=== PATIENT | female | born 1940 | race Caucasian/White ===

== ENCOUNTER 2019-03-23 08:48 | Emergency (ER) | payer OTHER, SELFPAY ==
[2019-03-23 08:55] VITALS: BP 104/62; PULSE 85; RESP 18; TEMP 36.7; O2SAT 100; BMI 27.3
--- NOTE | 2019-03-23 10:18 | ED.LOWEXIN ---
HPI - Extremity Injury (Lower) General Chief Complaint: Extremity Injury, Lower Stated Complaint: Left leg throbing, pain Time Seen by Provider: 03/23/19 08:55 Source: patient Mode of arrival: ambulatory Limitations: no limitations History of Present Illness HPI Narrative: Patient comes emergency department complaining of left pretibial abrasion that she sustained about 2 and half weeks ago. Patient states that she has had ongoing pain in the area of the abrasion, though no fevers, chills, or drainage from the wound. She has not noticed any erythema extending from the wound. She states she felt a ?lump? above the wound, but this seems to resolved. Patient has noted a mild amount of swelling in her ankle on the same side. She states that she was concerned that she may have a blood clot. She states she has been getting up and about quite a bit, and actually more than normal, because she and her recently host did a wedding on their property. 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 She states that she has definitely not been doing a lot of sitting or laying. Patient denies any calf pain. No history of DVT. No family history of DVT. Patient states she is otherwise healthy and has no other complaints at this time. Related Data Allergies Allergy/AdvReac Type Severity Reaction Status Date / Time Sulfa (Sulfonamide Allergy Verified 03/23/19 08:55 Antibiotics) Review of Systems Constitutional Constitutional: Denies chills, Denies fatigue, Denies fever(s), Denies frequent falls, Denies lethargy and Denies weakness Eyes Eyes: Denies change in vision, Denies eye discharge, Denies irritation and Denies loss of vision ENT Ears, Nose, Mouth, and Throat: Denies change in voice, Denies dizziness, Denies neck pain, Denies sore throat and Denies throat swelling Cardiovascular Cardiovascular: Denies chest pain, Denies irregular heart rhythm, Denies lightheadedness, Denies palpitations, Denies dyspnea, Denies dyspnea on exertion and Denies orthopnea Respiratory Respiratory: Denies cough, Denies dyspnea, Denies dyspnea on exertion and Denies wheezing Gastrointestinal Gastrointestinal: Denies abdominal pain, Denies change in bowel habits, Denies diarrhea, Denies nausea and Denies vomiting Genitourinary Genitourinary: Denies hematuria, Denies flank pain, Denies urinary incontinence and Denies urinary urgency Musculoskeletal Musculoskeletal: Denies back pain, Denies muscle weakness, Denies neck pain, Denies numbness and Denies tingling Comments: Ankle swelling Integumentary/Breasts Skin/Breast: Denies pruritus, Denies erythema, Denies rash and Denies wounds Comments: Abrasion Neurologic Neurologic: Denies behavioral changes, Denies confusion, Denies dizziness, Denies frequent falls, Denies loss of vision, Denies numbness, Denies tingling and Denies weakness Psychiatric Psychiatric: Denies anxiety, Denies behavioral changes, Denies confusion, Denies depression, Denies homicidal ideation and Denies suicidal ideation Endocrine Endocrine: Denies fatigue, Denies flushing and Denies palpitations Hematologic/Lymphatic Hematologic/Lymphatic: Denies easy bruising Allergic/Immunologic Allergic/Immunologic: Denies urticaria, Denies throat swelling and Denies wheezing [facility] Medical History Healthy adult (Acute) Surgical History No pertinent past surgical history (Acute) Social History Smoking Status: Never smoker Social History Smoking Status: Never smoker Exam Initial Vital Signs Initial Vital Signs: Vital Signs Temperature 98.0 F 03/23/19 08:55 Pulse Rate 85 03/23/19 08:55 Respiratory Rate 18 03/23/19 08:55 Blood Pressure 104/62 03/23/19 08:55 Pulse Oximetry 100 03/23/19 08:55 Const General: cooperative and well developed Nutritional Appearance: well nourished Orientation: alert, awake, oriented x3 and not confused [facility] Head: normocephalic and atraumatic Ears: external ears normal Nose: external nose normal and No nasal discharge Face and sinus: face symmetric and No dry mucous membranes Mouth: oral mucosae normal and moist mucous membranes Teeth and gingiva: dentition normal Resp Effort & Inspection: normal respiratory effort, able to speak in complete sentences, not labored and no respiratory distress Cardio Pulses: posterior tibial pulses present, dorsalis pedis present and normal peripheral pulses Back/Spine/Pelvis Back: normal to inspection Skin General: no rashes or lesions noted, No jaundice and No petechiae Other: Patient has a 3 cm diameter healing abrasion over her left mid pretibial area. There is no surrounding erythema, edema, or induration. No fluctuance. No drainage from the wound. Neuro General: alert, oriented x3, gait normal and no focal motor deficits Speech: speech normal Extrem General: full ROM and no calf tenderness Other: Patient has very mild edema of her left ankle that is not pitting. Course Course Course Narrative: I discussed with the patient that overall, her abrasion and left lower extremity are very well-appearing, and there is no evidence of infection or of DVT. Her wound is somewhat slow to heal, most likely due to her diabetes, but otherwise is healing appropriately. We have discussed home management of the wound, as well as the usual indications for return. Vital Signs Vital signs: Vital Signs - 8 hr 03/23/19 08:55 Temperature 98.0 F Pulse Rate 85 Respiratory Rate 18 Blood Pressure 104/62 Pulse Oximetry 100 MDM - Extremity Injury (Lower) Medical Records Attestation: I reviewed the patient's medical records. Discharge Plan Departure Patient Disposition: Home Clinical Impression: Abrasion Discharge Date/Time: 03/23/19 10:24 Instructions: DI for Abrasion Referrals: Tonny Brice MD [Primary Care Provider] -
--- NOTE | 2019-03-23 10:23 | PC.NURSE ---
pt c/o hoyt pain, has healing abrasion to area. area that is painful is next to site of healing abrasion.
== END 2019-03-23 10:24 | disposition home or self-care (01) ==
PROVIDERS: Emergency Provider Emergency Medicine; PCP Pediatrics Pediatric Nephrology
DX: S80.812A Abrasion, left lower leg, initial encounter (principal)
CPT/HCPCS: 99282